=== PATIENT | female | born 1960 | race American Indian/Alaskan Native ===

== ENCOUNTER 2017-12-28 12:24 | Emergency (ER) | payer BC, OTHER ==
[2017-12-28 12:25] VITALS: BMI 23.3
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
[2017-12-28 13:50] VITALS: BP 125/71; PULSE 69; RESP 18; TEMP 98; O2SAT 99
== END 2017-12-28 14:13 | disposition home or self-care (01) ==
LOC: ED 12:24
DX: M19.042 Primary osteoarthritis, left hand (principal); M79.642 Pain in left hand